=== PATIENT | male | born 1935 | race Caucasian/White ===

== ENCOUNTER 2016-11-08 02:21 | Inpatient (IN) | payer MEDICARE, OTHER ==
[~2016-11-08] VITALS: Ht 190.5 cm; Wt 99.3 kg
--- NOTE | 2016-11-08 02:28 | NUR ---
80 YO MALE BB RA FROM HOME. PT IS ALERT X 2, PT IS NOTED TO BE TACHYCARDIC IN THE 110'S, MD GALLARDO NOTIFIED. PT GOWNED, PLACED ON VAN DRIVER. SKIN WARM AND DRY, RR EVEN AND UNLABORED. AWAITING ORDERS FROM PROVIDER. PER EMS, PT CALLED EMS FOR PT BECOMING ALTERED. PT ONLY COMPLAINT IS COUGH, DENIES C/P, SOB/ N/V. NOTED DIMINISHED LUNGS SOUND LEFT LOBES. AWAITING ORDERS FROM PROVIDER, WILL CONTINUE TO MONITOR
--- NOTE | 2016-11-08 02:30 | NUR ---
CATHERINE GALLARDO DO AT BED SIDE FOR EVAL
--- NOTE | 2016-11-08 02:34 | NUR ---
LAB AT BED SIDE FOR BLOOD DRAW
[2016-11-08] MEDS ORDERED: MELO7.5T12 PO (02:41)
[2016-11-08] MEDS ORDERED: TRAM50TA2 PO (02:41)
[2016-11-08] MEDS ORDERED: LOSA25TA13 PO (02:41)
[2016-11-08 02:49] LABS: HEMATOCRIT 46 % (39-51); HEMOGLOBIN 15.7 g/dL (13.5-17.5); LYMPHOCYTES # (AUTO) 0.6 /CMM (0.8-4.8); LYMPHOCYTES % (AUTO) 4.9 % (20.0-44.0); MEAN CORPUSCULAR HEMOGLOBIN 33 PG (26.0-33.0); MEAN CORPUSCULAR HGB CONC 34 g/dl (31.0-36.0); MEAN CORPUSCULAR VOLUME 97 fL (80-96); MONOCYTES # (AUTO) 1.1 /CMM (0.1-1.30); MONOCYTES % (AUTO) 8.4 % (2.0-12.0); NEUTROPHILS # (AUTO) 11.5 /CMM (1.8-8.9); NEUTROPHILS % (AUTO) 86.7 % (43.0-81.0); PLATELET COUNT (AUTO) 160 /CMM (150-450); RED BLOOD CELL COUNT(AUTO) 4.77 MIL/uL (4.5-6.0); WHITE BLOOD COUNT (AUTO) 13.3 K/uL (4.3-11.0)
[2016-11-08] MEDS ORDERED: methylPREDNISolone SOD SUCC 125 MG/2ML VIAL IV ONE (03:00)
[2016-11-08] MEDS ORDERED: methylPREDNISolone SOD SUCC 125 MG/2ML VIAL ONE (03:00)
[2016-11-08] MEDS ORDERED: ALBUTEROL FS 2.5 MG/0.5 ML VIAL.NEB NEB ONE (03:00)
--- NOTE | 2016-11-08 03:01 | NUR ---
MEDICATED PT ORDERED
[2016-11-08] MEDS ORDERED: ALBUTEROL FS 2.5 MG/0.5 ML VIAL.NEB ONE (03:04)
--- NOTE | 2016-11-08 03:04 | NUR ---
RADIOLOGY TRANSPORTED PT TO CT VIA [facility]
[2016-11-08 03:10] LABS: APPEARANCE,URINE SL CLOUDY (CLEAR); BILIRUBIN,URINE NEGATIVE (NEGATIVE); BLOOD, URINE 2+ Ery/uL (NEGATIVE); COLOR,URINE DARK YELLO (YELLOW); KETONES,URINE NEGATIVE (NEGATIVE); LEUKOCYTE ESTERASE ,URINE NEGATIVE (NEGATIVE); NITRITE, URINE NEGATIVE (NEGATIVE); PH,URINE 5.5 (5.0-8.0); PROTEIN,URINE TRACE mg/dl (NEGATIVE); UGLUCOSE NEGATIVE (NEGATIVE); UROBILINOGEN,URINE 0.2 EU/dL (0.2)
[2016-11-08 03:22] LABS: BACTERIA,URINE None seen /HPF (None Seen); MUCUS,URINE Few /LPF (None Seen); SQUAMOUS EPITHELIAL CELL,UR Rare /HPF (None Seen); WBC,URINE NONE SEEN /HPF (0-3)
[2016-11-08 03:39] LABS: TROPONIN I < 0.017 ng/mL (0.00-0.056)
[2016-11-08 03:46] LABS: ALANINE AMINOTRANSFERASE 21 U/L (12-78); ALBUMIN 3.5 g/dL (3.4-5.0); ALKALINE PHOSPHATASE 62 U/L (46-116); ASPARTATE AMINOTRANSFERASE 16 U/L (15-37); B-TYPE NATRIURETIC PEPTIDE 1521 PG/ML (0-125); BILIRUBIN,DIRECT 0.2 mg/dL (0.0-0.2); BILIRUBIN,TOTAL 1.1 mg/dL (0.2-1.0); CALCIUM, SERUM 8.9 mg/dL (8.5-10.1); CARBON DIOXIDE 20 mmol/L (21-32); CHLORIDE 105 mmol/L (98-107); CREATININE 1.6 mg/dL (0.6-1.3); GLUCOSE 129 mg/dL (74-106); POTASSIUM 4.1 mmol/L (3.5-5.1); SODIUM SERUM 138 mmol/L (136-145); UREA NITROGEN, BLOOD 29 mg/dL (7-18)
[2016-11-08 03:54] LABS: ABG BASE EXCESS -2.7 mmol/L; ABG OXYGEN SATURATION 90.4 % (92.0-98.5); ABG PCO2 27.8 mmHg (35.0-45.0); ABG PH 7.462 (7.350-7.450); ABG PO2 57.2 mmHg (75.0-100.0); MetHb 0.4 % (0.0-1.5); O2Hb 89.1 % (94.0-97.0); SITE, ABG Right Radial; VENT MODE, BG SM
[2016-11-08] MEDS ORDERED: AMLO5TAB2 PO (03:54)
[2016-11-08] MEDS ORDERED: ALLO100T PO (03:54)
[2016-11-08] MEDS ORDERED: SIMV20TA6 PO (03:54)
--- NOTE | 2016-11-08 03:57 | NUR ---
ASSIGNED BED 108
[2016-11-08] MEDS ORDERED: PIPERACILLIN /TAZOBACTAM 3.375 G in IV D5W 50 ML IV ONE (04:00)
[2016-11-08] MEDS ORDERED: LEVOFLOXACIN 750 MG /D5W 150ML PIGGYBACK IV ONE (04:00)
--- NOTE | 2016-11-08 04:03 | NUR ---
CALLED TO GIVE REPORT. WAS INFORMED MEREDITH SANCHEZ WILL CALL BACK.
[2016-11-08] MEDS ORDERED: PIPERACILLIN /TAZOBACTAM 3.375 G VIAL IV ONE (04:11)
[2016-11-08] MEDS ORDERED: LEVOFLOXACIN 750 MG /D5W 150ML 150 ML IV ONE (04:11)
--- NOTE | 2016-11-08 04:28 | NUR ---
RECEIVED 80 YO MALE BB RA FROM ER ENDORSED BY EMILIO. PT IS ALERT X 2, PT IS NOTED TO BE SR TACHY 99, 132/74, T 99.9, RR 24. PT GOWNED, PLACED ON TELE MONITOR. SKIN WARM AND DRY, RR EVEN AND LABORED. CALLED IVANNA LCAY, AWAITING ORDERS FROM CORE FEEDER. PER , PT CALLED EMS FOR PT BECOMING ALTERED. PT ONLY COMPLAINT IS COUGH, DENIES C/P, SOB/ N/V. NOTED DIMINISHED LUNGS SOUND LEFT LOBES. AWAITING ORDERS FROM CORE FEEDER, WILL CONTINUE TO MONITOR.
--- NOTE | 2016-11-08 04:36 | NUR ---
TRANSPORTED PT TO TELE BED WITHOUT INCIDENT
[2016-11-08 05:00] VITALS: BP_SYST 121; BP_SYST 132; BP_DIAS 67; BP_DIAS 74
[2016-11-08] MEDS ORDERED: HYDROCODONE/APAP 5/325MG 1 EACH TABLET PO PRN (06:30)
[2016-11-08] MEDS ORDERED: ACETAMINOPHEN 325 MG TABLET PO PRN (06:30)
[2016-11-08] MEDS ORDERED: ALBUTEROL FS 2.5 MG/0.5 ML VIAL.NEB NEB PRN (06:30)
[2016-11-08] MEDS ORDERED: MAGNESIUM HYDROXIDE 30 ML UDC PO PRN (06:30)
[2016-11-08] MEDS ORDERED: ONDANSETRON HCL/PF 4 MG/2 ML VIAL IVP PRN (06:30)
[2016-11-08] MEDS ORDERED: IPRATROPIUM NEB FS 0.5 MG/2.5 ML AMPUL.NEB NEB PRN (06:30)
[2016-11-08] MEDS ORDERED: ZOLPIDEM TARTRATE 5 MG TABLET PO PRN (06:30)
[2016-11-08] MEDS ORDERED: IV NS 0.9% 1,000 ML BAG IV PRN (06:30)
--- NOTE | 2016-11-08 07:10 | NUR ---
KEIRA RN INITIAL NOTES: REC'D PT AWAKE ON BED, NOT IN ANY FORM OF DISTRESS, A/O X3-4, DENIES ANY PAIN/ DISCOMFORT. PT ON O2 AT 10LPM/ MASK, SATURATING AT 94%. ON TELEMONITOR, SR W/ PAC & PVC, HR 95. HAS L WRIST G18, SL, FLUSHED, PATENT & INTACT W/ NO S/SX OF INFECTION/ INFILTRATION NOTED. PROVIDED COMFORT & SAFETY MEASURES. BED KEPT LOW & IN LOCKED POS. CALL LIGHT PLACED W/IN REACH. WILL CONTINUE TO MONITOR.
[2016-11-08] MEDS: AMLODIPINE BESYLATE 5 MG TABLET PO SCH (08:47)
[2016-11-08] MEDS: PANTOPRAZOLE 40 MG TABLET.DR PO SCH (08:47)
[2016-11-08] MEDS: Z GUARD REMEDY 2 OZ OINT TP PRN (08:48)
[2016-11-08] MEDS: IV NS 0.9% 1,000 ML IV PRN (08:48)
[2016-11-08] MEDS ORDERED: ALLOPURINOL 100 MG TABLET PO SCH (09:00)
[2016-11-08] MEDS ORDERED: MELOXICAM 7.5 MG TABLET PO SCH (09:00)
[2016-11-08 10:08] VITALS: BP 121/65
[2016-11-08] MEDS: LOSARTAN POTASSIUM 25 MG TABLET PO SCH (10:54)
--- NOTE | 2016-11-08 11:00 | NUR ---
RN NOTES: PT SEEN & EXAMINED BY DR. LIN W/ NEW ORDERS & CARRIED OUT. PT PUT ON O2 AT 2LPM/NC W/ HUMIDIFIER, SATURATING AT 88%. MD IS AWARE. ENCOURAGED PT TO DO DEEP BREATHING WELL TO USE INCENTIVE SPIROMETER. PT VERBALIZED UNDERSTANDING. CURRENT MEDICATIONS ADJUSTED W/ CONSENT OF MD.
[2016-11-08] MEDS ORDERED: TRAMADOL HCL 50 MG TABLET PO PRN (11:30)
[2016-11-08 12:00] VITALS: BP 108/62
[2016-11-08] MEDS: PIPERACILLIN /TAZOBACTAM 3.375 G in IV D5W 50 ML IV SCH ×2 (12:39→17:14)
[2016-11-08] MEDS ORDERED: FUROSEMIDE 20 MG/2 ML VIAL IV ONE (13:30)
[2016-11-08 16:00] VITALS: BP 116/67
--- NOTE | 2016-11-08 16:21 | NUR ---
RN NOTES: PT SEEN & EXAMINED BY DR. CRISOSTOMO W/ NEW ORDERS - TO START GUAFENESSIN 300 MG/15ML PO EVERY 6 HRS FOR 3 DAYS & PREDNISONE 40 MG PO OD X 3 DAYS. MD AWARE OF PT'S SATURATION AT 88% WHILE ON O2 AT 2LPM/NC. O2 SUPPORT INCREASED AT 3LPM/NC PER MD. PT INFORMED.
[2016-11-08] MEDS: predniSONE 20 MG TABLET PO SCH (17:14)
[2016-11-08] MEDS: GUAIFENESIN 300 MG/15 ML UDC PO SCH (18:21)
--- NOTE | 2016-11-08 18:50 | NUR ---
KEIRA RN CLOSING NOTES: NO ACUTE CHANGES NOTED W/IN SHIFT. PT ON O2 AT 3LPM/ NC, SATURATING AT 86%, MD IS AWARE. ENCOURAGED TO USE I.S AND DEEP BREATHING/ COUGHING EXERCISES. L WRIST G18, KEPT PATENT & INTACT W/ NO S/SX OF INFECTION/ INFILTRATION NOTED. KEPT WELL RESTED. BED KEPT LOW & IN LOCKED POS. CALL LIGHT PLACED W/IN REACH. NEEDS ATTENDED. PT ABLE TO AMBULATE W/ STEADY GAIT. FOR SPUTUM COLLECTION, PT IS AWARE. WILL ENDORSE TO PM RN FOR MIGUELANGEL.
[2016-11-08 20:00] VITALS: BP 115/66
[2016-11-08] MEDS: SIMVASTATIN 20 MG TABLET PO SCH (21:37)
[2016-11-08] MEDS: ENOXAPARIN SODIUM 40 MG/0.4 ML DISP.SYRIN SQ SCH (21:39)
[2016-11-09] VITALS: BP 109/66
[2016-11-09] MEDS: GUAIFENESIN 300 MG/15 ML UDC PO SCH ×4 (00:01→17:38)
[2016-11-09] MEDS: PIPERACILLIN /TAZOBACTAM 3.375 G in IV D5W 50 ML IV SCH ×4 (00:01→17:39)
[2016-11-09 04:00] VITALS: BP 116/67
[2016-11-09] MEDS: IV NS 0.9% 1,000 ML IV PRN (06:01)
[2016-11-09] MEDS: LEVOFLOXACIN 750 MG /D5W 150ML 750 MG in PREMIX 1 EA IV SCH (06:01)
[2016-11-09 06:35] LABS: HEMATOCRIT 47 % (39-51); HEMOGLOBIN 15.9 g/dL (13.5-17.5); LYMPHOCYTES # (AUTO) 0.7 /CMM (0.8-4.8); LYMPHOCYTES % (AUTO) 3.9 % (20.0-44.0); MEAN CORPUSCULAR HEMOGLOBIN 33 PG (26.0-33.0); MEAN CORPUSCULAR HGB CONC 34 g/dl (31.0-36.0); MEAN CORPUSCULAR VOLUME 98 fL (80-96); MONOCYTES # (AUTO) 0.9 /CMM (0.1-1.30); MONOCYTES % (AUTO) 4.8 % (2.0-12.0); NEUTROPHILS # (AUTO) 16.6 /CMM (1.8-8.9); NEUTROPHILS % (AUTO) 91.3 % (43.0-81.0); PLATELET COUNT (AUTO) 172 /CMM (150-450); RDW COEFFICIENT OF VARIATION 14.8 (11.5-15.0); RED BLOOD CELL COUNT(AUTO) 4.78 MIL/uL (4.5-6.0); WHITE BLOOD COUNT (AUTO) 18.2 K/uL (4.3-11.0)
--- NOTE | 2016-11-09 06:38 | NUR ---
MEREDITH NOTES No change in condition during the night. Alert and oriented. Educated on lovenox. Ambulates ad preston. Continue on IVF and antibiotics. IV site LW patent. Continue to require use of oxygen. Call light within reach Addendum: 11/09/16 at 714 by CHRISTOPHER CHOI RN [phone] report given to Nydia Mcclellan RN Addendum: 11/09/16 at 716 by CHRISTOPHER CHOI RN 699 Report given to Nydia Mcclellan
[2016-11-09 06:54] LABS: CALCIUM, SERUM 8.6 mg/dL (8.5-10.1); CARBON DIOXIDE 24 mmol/L (21-32); CHLORIDE 105 mmol/L (98-107); CREATININE 1.8 mg/dL (0.6-1.3); GLUCOSE 134 mg/dL (74-106); MAGNESIUM 1.9 mg/dL (1.8-2.4); PHOSPHORUS 3.4 mg/dL (2.5-4.9); POTASSIUM 4.1 mmol/L (3.5-5.1); SODIUM SERUM 140 mmol/L (136-145); UREA NITROGEN, BLOOD 41 mg/dL (7-18)
[2016-11-09 07:00] LABS: CHOLESTEROL 123 mg/dL (<200); HDL CHOLESTEROL 32 mg/dL (40-60); LDL 72 mg/dL (0-99); TRIGLYCERIDES 69 mg/dL (30-150)
--- NOTE | 2016-11-09 07:00 | NUR ---
KEIRA RN INITIAL NOTES: REC'D PT AWAKE ON BED, NOT IN ANY FORM OF DISTRESS, A/O X3-4, DENIES ANY PAIN/ DISCOMFORT. PT ON O2 AT 5LPM/ MASK, VERBALIZED NO SOB. ON TELEMONITOR, SR W/ PVCS, HR 74. HAS L WRIST G18, PL, PATENT & INTACT W/ NO S/SX OF INFECTION/ INFILTRATION NOTED WITH NS X 60 CC/HR INFUSING WELL. ENCOURAGED TO USE I.S AND TO DO DEEP BREATHING EXERCISES W/ VERBALIZATION OF UNDERSTANDING. PROVIDED COMFORT & SAFETY MEASURES. BED KEPT LOW & IN LOCKED POS. CALL LIGHT PLACED W/IN REACH. WILL CONTINUE TO MONITOR.
[2016-11-09 08:00] VITALS: BP 126/73
--- NOTE | 2016-11-09 08:30 | NUR ---
RN NOTES: PT NOTED EPISODE OF VTACH 7 BEATS, PT IS A/OX3, VS STABLE, DENIES ANY DISCOMFORT. CALLED DR. LIN, AWAITING FOR CALL BACK. Addendum: 11/09/16 at 0939 by HELENA RASHID RN 0900H REC'D CALL BACK FROM DR. LIN W/ ORDERS FOR CARDIO CONSULT W/ DR. ALEGRE.
[2016-11-09] MEDS: ALLOPURINOL 100 MG TABLET PO SCH ×2 (08:36→17:38)
[2016-11-09] MEDS: predniSONE 20 MG TABLET PO SCH (08:36)
[2016-11-09] MEDS: AMLODIPINE BESYLATE 5 MG TABLET PO SCH (08:37)
[2016-11-09] MEDS: PANTOPRAZOLE 40 MG TABLET.DR PO SCH (08:37)
[2016-11-09] MEDS: LOSARTAN POTASSIUM 25 MG TABLET PO SCH (08:37)
[2016-11-09] MEDS: Z GUARD REMEDY 2 OZ OINT TP PRN (08:37)
--- NOTE | 2016-11-09 09:30 | NUR ---
RN NOTES: PT SEEN & EXAMINED BY DR. LIN W/ ORDERS TO DO ECHOCARDIOGRAM.
--- NOTE | 2016-11-09 10:31 | NUR ---
RN NOTES: CALLED DR. ALEGRE OFFICE, SPOKE W/ HANH, TO INFORM MD RE: CARDIO CONSULT.
[2016-11-09 12:00] VITALS: BP 122/72
[2016-11-09] MEDS ORDERED: GABAPENTIN 100 MG CAPSULE PO PRN (13:00)
--- NOTE | 2016-11-09 13:30 | NUR ---
RN NOTES: ECHOCARDIOGRAM DONE.
--- NOTE | 2016-11-09 15:00 | NUR ---
RN NOTES: PT SEEN & EXAMINED BY DR. CRISOSTOMO.
[2016-11-09 16:00] VITALS: BP 128/69
--- NOTE | 2016-11-09 19:14 | NUR ---
KEIRA RN CLOSING NOTES: NO ACUTE CHANGES NOTED W/IN SHIFT. SATURATING AT < 90'S WHILE ON O2 AT 3LPM/ NC, MD IS AWARE. L WRIST G18, KEPT PATENT & INTACT W/ NO S/SX OF INFECTION/ INFILTRATION NOTED W/ NS X 60 CC/HR INFUSING WELL. OFF TELEMONITOR PER MD ORDERS. KEPT WELL RESTED. BED KEPT LOW & IN LOCKED POS. CALL LIGHT PLACED W/IN REACH. NEEDS ATTENDED. WILL ENDORSE TO PM RN FOR MIGUELANGEL.
--- NOTE | 2016-11-09 19:15 | NUR ---
RN NOTES RECEIVED PT AWAKE, HOB ELEVATED , NO SOB, NOT IN DISTRESS WITH O2 INHALATION AT 3LPM VIA NC WITH O2SAT OF 91%. PT ALERT AND ORIENTED X4, DENIES ANY PAIN AND DISCOMFORT. IV ACCESS ON LEFT WRIST PATENT AND INTACT, NO SIGNS OF INFILTRATION NOTED, WITH ONGOING IVF INFUSING WELL. KEPT COMFORTABLE AND ATTENDED. SAFETY MEASURES IN PLACE. KEPT BED IN THE LOWEST POSITION, LOCKED, SIDE RAILS X2 UP, WITH CALL LIGHT WITH IN REACH. WILL CONTINUE TO MONITOR PT.
[2016-11-09 20:00] VITALS: BP 137/71
[2016-11-09] MEDS: ENOXAPARIN SODIUM 40 MG/0.4 ML DISP.SYRIN SQ SCH (21:14)
[2016-11-09] MEDS: SIMVASTATIN 20 MG TABLET PO SCH (21:14)
[2016-11-10] VITALS: BP 137/71
[2016-11-10] MEDS: PIPERACILLIN /TAZOBACTAM 3.375 G in IV D5W 50 ML IV SCH ×5 (00:01→23:31)
[2016-11-10] MEDS: GUAIFENESIN 300 MG/15 ML UDC PO SCH ×5 (00:01→23:31)
[2016-11-10] MEDS: IV NS 0.9% 1,000 ML IV PRN ×2 (00:29→21:41)
[2016-11-10 04:00] VITALS: BP 126/69
[2016-11-10 06:39] LABS: HEMATOCRIT 49 % (39-51); HEMOGLOBIN 16.4 g/dL (13.5-17.5); LYMPHOCYTES # (AUTO) 0.9 /CMM (0.8-4.8); LYMPHOCYTES % (AUTO) 4.9 % (20.0-44.0); MEAN CORPUSCULAR HEMOGLOBIN 34 PG (26.0-33.0); MEAN CORPUSCULAR HGB CONC 34 g/dl (31.0-36.0); MEAN CORPUSCULAR VOLUME 100 fL (80-96); MONOCYTES # (AUTO) 0.8 /CMM (0.1-1.30); MONOCYTES % (AUTO) 4.2 % (2.0-12.0); NEUTROPHILS # (AUTO) 17.4 /CMM (1.8-8.9); NEUTROPHILS % (AUTO) 90.9 % (43.0-81.0); PLATELET COUNT (AUTO) 194 /CMM (150-450); RDW COEFFICIENT OF VARIATION 14.7 (11.5-15.0); WHITE BLOOD COUNT (AUTO) 19.1 K/uL (4.3-11.0)
--- NOTE | 2016-11-10 07:02 | NUR ---
RN NOTES PT AWAKE, HOB ELEVATED, NO SOB, NOT IN DISTRESS ON 3LPM O2 WITH O2 SAT AT 91%. VITAL SIGNS STABLE, AFEBRILE. PT ALERT AND ORIENTED X4, NO COMPLAIN OF PAIN. NO EPISODE OF NAUSEA AND VOMITING. PT COUGH AT TIMES, PRODUCTIVE, ABLE TO SPIT OUT WHITE THICK SECRETIONS. ALL DUE MEDS GIVEN. ASSISTED TO THE BATHROOM, NOTED WITH STEADY GAIT. ALL NEEDS MET. NO SIGNIFICANT CHANGE IN CONDITION NOTED. WILL ENDORSE TO MORNING RN FOR CONTINUITY OF CARE.
[2016-11-10 07:08] LABS: CALCIUM, SERUM 8.7 mg/dL (8.5-10.1); CARBON DIOXIDE 24 mmol/L (21-32); CHLORIDE 106 mmol/L (98-107); CREATININE 1.6 mg/dL (0.6-1.3); GLUCOSE 129 mg/dL (74-106); MAGNESIUM 2.1 mg/dL (1.8-2.4); PHOSPHORUS 2.6 mg/dL (2.5-4.9); POTASSIUM 4.1 mmol/L (3.5-5.1); SODIUM SERUM 142 mmol/L (136-145); UREA NITROGEN, BLOOD 35 mg/dL (7-18)
[2016-11-10 08:00] VITALS: BP 128/74
[2016-11-10] MEDS: PANTOPRAZOLE 40 MG TABLET.DR PO SCH (08:24)
[2016-11-10] MEDS: ALLOPURINOL 100 MG TABLET PO SCH ×2 (08:25→17:53)
[2016-11-10] MEDS: AMLODIPINE BESYLATE 5 MG TABLET PO SCH (08:25)
[2016-11-10] MEDS: predniSONE 20 MG TABLET PO SCH (08:27)
[2016-11-10 16:00] VITALS: BP 131/71
[2016-11-10] MEDS: LACTOBACILLUS RHAMNOSUS GG 1 EACH CAP.SPRINK PO SCH (17:53)
--- NOTE | 2016-11-10 19:39 | NUR ---
MS RN INITIAL NOTE PT WAS RECEIVED IN NO ACUTE DISTRESS. PT IS A/O X3 ABLE TO COMMUNICATE AND LET NEEDS BE KNOWN. AT BED SIDE. PT IS ON NO TELE/VENT. ON 3LPM 02 VIA NC SATURATING AT 97% WITH NO DISTRESS. ON 2 GM NA DIET. HAS A L WRIST 18G RUNNING NS @60ML/HR. COMFORT AND SAFETY MEASURES WILL BE ENSURED DURING THE SHIFT. WILL CONTINUE TO MONITOR FOR ANY CHANGES.
[2016-11-10 20:00] VITALS: BP 128/77
[2016-11-10] MEDS: ENOXAPARIN SODIUM 40 MG/0.4 ML DISP.SYRIN SQ SCH (21:31)
[2016-11-10] MEDS: SIMVASTATIN 20 MG TABLET PO SCH (21:31)
[2016-11-11 04:00] VITALS: BP 143/84
[2016-11-11] MEDS: PIPERACILLIN /TAZOBACTAM 3.375 G in IV D5W 50 ML IV SCH ×2 (05:00→11:36)
[2016-11-11] MEDS: GUAIFENESIN 300 MG/15 ML UDC PO SCH ×2 (05:00→11:36)
[2016-11-11] MEDS: LEVOFLOXACIN 750 MG /D5W 150ML 750 MG in PREMIX 1 EA IV SCH (05:06)
--- NOTE | 2016-11-11 05:44 | NUR ---
RN MS CLOSING NOTE PT REMAINS IN NO ACUTE DISTRESS. PT HAS CLEAN DRY AND INTACT IV LINE. ABLE TO SLEEP WELL LAST NIGHT. 3LPM 02 VIA NC TOLERATED WELL. ALL DUE ORDERS CARRIED OUT. SAFETY AND COMFORT MEASURES ENSURED. WILL ENDORSE CARE TO AM NURSE.
--- NOTE | 2016-11-11 07:27 | NUR ---
MEREDITH INITIAL NOTE REPORT RECEIVED FROM INES HARPER PM SHIFT. PT A/O X 4. PT MS. IV L WRIST 18g NS @ 60ML/HR. WILL CONTINUE TO MONITOR. PAIN 0/10. ALL SAFETY MEASURES IN PLACE.
[2016-11-11 08:00] VITALS: BP 139/77
[2016-11-11 08:05] VITALS: BP 139/77
[2016-11-11] MEDS: AMLODIPINE BESYLATE 5 MG TABLET PO SCH (08:05)
[2016-11-11] MEDS: ALLOPURINOL 100 MG TABLET PO SCH (08:05)
[2016-11-11] MEDS: PANTOPRAZOLE 40 MG TABLET.DR PO SCH (08:05)
[2016-11-11] MEDS: LACTOBACILLUS RHAMNOSUS GG 1 EACH CAP.SPRINK PO SCH (08:05)
[2016-11-11] MEDS: predniSONE 20 MG TABLET PO SCH (08:05)
[2016-11-11 08:15] LABS: BASOPHILS % (AUTO) 0.1 % (0.0-2.0); HEMATOCRIT 47 % (39-51); HEMOGLOBIN 15.9 g/dL (13.5-17.5); LYMPHOCYTES # (AUTO) 0.8 /CMM (0.8-4.8); LYMPHOCYTES % (AUTO) 5.1 % (20.0-44.0); MEAN CORPUSCULAR HEMOGLOBIN 33 PG (26.0-33.0); MEAN CORPUSCULAR HGB CONC 34 g/dl (31.0-36.0); MEAN CORPUSCULAR VOLUME 97 fL (80-96); MONOCYTES # (AUTO) 1.1 /CMM (0.1-1.30); MONOCYTES % (AUTO) 6.6 % (2.0-12.0); NEUTROPHILS # (AUTO) 14.2 /CMM (1.8-8.9); NEUTROPHILS % (AUTO) 88.2 % (43.0-81.0); PLATELET COUNT (AUTO) 205 /CMM (150-450); RDW COEFFICIENT OF VARIATION 14.3 (11.5-15.0); RED BLOOD CELL COUNT(AUTO) 4.81 MIL/uL (4.5-6.0); WHITE BLOOD COUNT (AUTO) 16.1 K/uL (4.3-11.0)
[2016-11-11 08:26] LABS: ALANINE AMINOTRANSFERASE 31 U/L (12-78); ALBUMIN 2.7 g/dL (3.4-5.0); ALKALINE PHOSPHATASE 44 U/L (46-116); BILIRUBIN,TOTAL 0.7 mg/dL (0.2-1.0); CALCIUM, SERUM 8.6 mg/dL (8.5-10.1); CARBON DIOXIDE 25 mmol/L (21-32); CHLORIDE 106 mmol/L (98-107); CREATININE 1.4 mg/dL (0.6-1.3); GLUCOSE 92 mg/dL (74-106); MAGNESIUM 1.9 mg/dL (1.8-2.4); PHOSPHORUS 2.2 mg/dL (2.5-4.9); POTASSIUM 3.9 mmol/L (3.5-5.1); SODIUM SERUM 139 mmol/L (136-145); TOTAL PROTEIN, SERUM 6.6 g/dL (6.4-8.2); UREA NITROGEN, BLOOD 26 mg/dL (7-18)
[2016-11-11 08:35] LABS: ASPARTATE AMINOTRANSFERASE 22 U/L (15-37)
--- NOTE | 2016-11-11 09:01 | NUR ---
RN NOTE DR. LIN MADE ROUND ON PT . BEFORE DC MD ORDERED AMB WITH OUT O2. REMOVED OXYGEN ON PT. CALLED PHYSICAL THERAPY TO AMB WITH PT. WILL CONTINUE TO MONITOR PT OXYGEN LEVEL.
--- NOTE | 2016-11-11 11:11 | NUR ---
RN NOTE PT UNABLE TO AMB WITH OUT O2 @ REST WITH OUT OZ SPO02 86-87%. PT AMB WITH O2 WITH PT 4L NC 88-90%. SPOKE TO DR. OSPINA PT NEEDS TO GO HOME WITH O2.
[2016-11-11] MEDS ORDERED: NEUTRA PHOS 1 POWD.PACKET PO ONE (13:00)
--- NOTE | 2016-11-11 14:20 | NUR ---
MARKETING TEACHER NOTE PT DC HOME. PT STABLE WELL V/S. PT DC VIA PRIVATE CAR. IV AND ID BAND REMOVED. ALL DC INSTRUCTIONS GIVEN TO PT AND JOLLY. BELONGING LIST SIGNED. INFORMED PT AND EDUCATED PT ON IMPORTANCE OF OXYGEN AT HOME VIA NC. WENT HOME WITH OXYGEN. DECLINED WEARING O2 HOME PT STATED HE FELT FINE. I REEDUCATED PT ON IMPORTANCE AND WELL. STED HE LIVED 2 MINUTES AWAY AND WOULD PUT IT ON @ HOME. I TOLD PT I CAN NOT FORCE HIM ONLY EDUCATE HIM. ASK IF SHE COULD MAKE SHE PT USES O2. DR. OSPINA INFORMATION GIVEN ASK TO CALL FOR APPT IN 1-2 WKS. MAKE F/U APPT WITH PRIMARY IN 1-2 WKS. ALL ORDERS CARRIED OUT AND RX GIVEN TO PT. ALL QUESTIONS AND CONCERN ANSWERED. UNABLE TO PROVIDE DATE OF PNEUMONIA VACCINE EXIT CARE AND CORE MEASURES DONE.
== END 2016-11-11 14:17 | disposition home or self-care (01) | DRG 999 ==
LOC: ER 02:22 → TELE-TD 04:02 → MEDSG1 11-09 16:55
PROVIDERS: ADMIT Internal Medicine; ATTEND Internal Medicine
DX: Y92.009 Unspecified place in unspecified non-institutional (private) residence as the place of occurrence of the external cause (principal); J15.9 Unspecified bacterial pneumonia; J96.01 Acute respiratory failure with hypoxia; N17.0 Acute kidney failure with tubular necrosis; I50.33 Acute on chronic diastolic (congestive) heart failure; G92 Toxic encephalopathy; I47.2 Ventricular tachycardia; E78.5 Hyperlipidemia, unspecified; G47.00 Insomnia, unspecified; Z86.73 Personal history of transient ischemic attack (TIA), and cerebral infarction without residual deficits; Z96.659 Presence of unspecified artificial knee joint; M10.9 Gout, unspecified; I49.9 Cardiac arrhythmia, unspecified; D72.829 Elevated white blood cell count, unspecified; T38.0X5A Adverse effect of glucocorticoids and synthetic analogues, initial encounter
CPT/HCPCS: 36415; 36600; 70450-TC; 71010-TC; 80048-TC; 80053-TC; 80061-TC; 80076-TC; 81000-TC; 82803-TC; 83605-TC; 83735-TC; 83880; 84100-TC; 84484-TC; 85025-TC; 87040-TC; 87070-TC; 87081-TC; 93307-TC; 94799-TC; 97001-TC; A4216; A4606; J1650; J1940; J1956; J2543; J2930; J7030; J7060; Z7610

== ENCOUNTER 2018-09-29 16:32 | Inpatient (IN) | payer MEDICARE, OTHER ==
[~2018-09-29] VITALS: Ht 190.5 cm; Wt 98.9 kg
[2018-09-29 09:00] VITALS: BP 140/69
[~2018-09-29 16:32] MED LIST: ALLO100T PO; AMLO5TAB9 PO; LOSA25TA27 PO; MELO7.5T12 PO; SIMV20TA6 PO; TRAM50TA2 PO
[2018-09-29] MEDS ORDERED: ONDANSETRON HCL/PF 4 MG/2 ML VIAL ONE (16:58)
[2018-09-29] MEDS ORDERED: ONDANSETRON HCL/PF 4 MG/2 ML VIAL IVP ONE (17:00)
[2018-09-29] MEDS ORDERED: IV NS 0.9% 1,000 ML BAG IV ONE (17:00)
--- NOTE | 2018-09-29 17:00 | NUR ---
BIB RA 878 FROM HOME, DIZZINESS AFTER DOING YOGA AT 11 THIS MORNING WHICH RESOLVED BUT RE-OCCURED WHEN HE WOKE UP THIS AFTERNOON. PT AAOX4, VSS, RR EVEN & UNLABORED. DENIES CP, SOB, N/V, ARM/JAW PAIN, VISUAL CHANGES, NUMBNESS/TINGLING SENSATION AT THIS TIME. PT SEEN & EVAL'D BY DR. DOE. WILL CONT TO MONITOR.
[2018-09-29 17:10] LABS: BASOPHILS # (AUTO) 0.1 /CMM (0.0-0.2); BASOPHILS % (AUTO) 0.8 % (0.0-2.0); EOSINOPHILS % (AUTO) 1.1 % (0.0-6.0); HEMATOCRIT 50 % (39-51); HEMOGLOBIN 16.8 g/dL (13.5-17.5); LYMPHOCYTES % (AUTO) 13.7 % (20.0-44.0); MEAN CORPUSCULAR HGB CONC 34 g/dl (31.0-36.0); MEAN CORPUSCULAR VOLUME 101 fL (80-96); MONOCYTES # (AUTO) 0.4 /CMM (0.1-1.30); MONOCYTES % (AUTO) 5.2 % (2.0-12.0); NEUTROPHILS # (AUTO) 5.9 /CMM (1.8-8.9); NEUTROPHILS % (AUTO) 79.2 % (43.0-81.0); PLATELET COUNT (AUTO) 169 /CMM (150-450); RED BLOOD CELL COUNT(AUTO) 4.98 MIL/uL (4.5-6.0); WHITE BLOOD COUNT (AUTO) 7.4 K/uL (4.3-11.0)
--- NOTE | 2018-09-29 17:12 | NUR ---
PT REFUSED MED, ERMD AWARE.
[2018-09-29 17:19] LABS: CALCIUM, SERUM 9.5 mg/dL (8.5-10.1); CARBON DIOXIDE 20 mmol/L (21-32); CHLORIDE 107 mmol/L (98-107); CREATININE 1.3 mg/dL (0.6-1.3); GLUCOSE 133 mg/dL (74-106); POTASSIUM 4.6 mmol/L (3.5-5.1); SODIUM SERUM 140 mmol/L (136-145); UREA NITROGEN, BLOOD 27 mg/dL (7-18)
--- NOTE | 2018-09-29 17:24 | NUR ---
PT TO CT VIA [facility].
[2018-09-29 17:25] LABS: ALANINE AMINOTRANSFERASE 21 U/L (12-78); ALBUMIN 3.8 g/dL (3.4-5.0); ALKALINE PHOSPHATASE 67 U/L (46-116); ASPARTATE AMINOTRANSFERASE 17 U/L (15-37); BILIRUBIN,DIRECT 0.1 mg/dL (0.0-0.2); BILIRUBIN,TOTAL 0.7 mg/dL (0.2-1.0); LIPASE 358 U/L (73-393)
--- NOTE | 2018-09-29 18:12 | NUR ---
TELE BED 309-2
[2018-09-29] MEDS ORDERED: IV NS 0.9% 1,000 ML IV PRN (18:29)
[2018-09-29] MEDS ORDERED: MAG HYDROX/AL HYDROX/SIMETH 30 ML UDC PO PRN (18:30)
[2018-09-29] MEDS ORDERED: Z GUARD REMEDY 2 OZ OINT TP PRN (18:30)
[2018-09-29] MEDS ORDERED: MAGNESIUM HYDROXIDE 30 ML UDC PO PRN (18:30)
[2018-09-29] MEDS ORDERED: ACETAMINOPHEN 325 MG TABLET PO PRN (18:30)
[2018-09-29] MEDS ORDERED: ONDANSETRON HCL/PF 4 MG/2 ML VIAL IVP PRN (18:30)
[2018-09-29] MEDS ORDERED: ASPI-1169 PO (18:31)
[2018-09-29] MEDS ORDERED: RELIEF FACTOR PO (18:31)
[2018-09-29] MEDS ORDERED: METO-356 PO (18:31)
[2018-09-29] MEDS ORDERED: FOLI-65 PO (18:31)
[2018-09-29] MEDS ORDERED: MELA5TAB PO (18:31)
[2018-09-29] MEDS ORDERED: CRAN300T PO (18:31)
[2018-09-29] MEDS ORDERED: GABA-532 PO (18:31)
[2018-09-29] MEDS ORDERED: LOSA50TA39 PO (18:31)
[2018-09-29] MEDS ORDERED: AMLO2.5T4 PO (18:31)
--- NOTE | 2018-09-29 18:42 | NUR ---
REPORT GIVEN TO MEREDITH MONTILLA FOR MIGUELANGEL.
[2018-09-29 19:00] VITALS: BP 138/75
[2018-09-29] MEDS ORDERED: TRAMADOL HCL 50 MG TABLET PO PRN (19:00)
--- NOTE | 2018-09-29 19:00 | NUR ---
UNDERWATER WELDER NOTES RECEIVED PT FROM E.R. STAFF VIA [place], PT IS AWAKE, ALERT AND ORIENTED, DENIES PAIN, ABLE TO TRANSFER TO BED, FALL PRECAUTIONS OBSERVED, DENIES DIZZINESS AT THIS TIME, RESPIRATIONS NORMAL, ROOM SET UP ORIENTATION PROVIDED, VERBALIZED UNDERSTANDING, VITAL SIGNS TAKEN AND RECORDED, CALL LIGHT PLACED WITHIN REACH, KEPT WARM AND COMFORTABLE, ENDORSED TO INCOMING RN FOR CONTINUITY OF CARE.
--- NOTE | 2018-09-29 19:15 | NUR ---
INSTITUTIONAL RESEARCH DIRECTOR NOTES Received patient A/O X4, awake, on semi-Lou's position on bed. With patent peripheral IV line LAC G#20 SL. On RA, no SOB/respiratory distress noted. On tele monitor with SR with PVC noted. Patient denies any discomfort at this time. Initiated IVF NS @ 75ml/hr as ordered. Kept bed low and locked. Siderails up. Call light within easy reach. Will continue to monitor accordingly.
[2018-09-29 20:00] VITALS: BP_SYST 125; BP_SYST 138; BP_SYST 140; BP_DIAS 69; BP_DIAS 75; BP_DIAS 83
--- NOTE | 2018-09-29 20:30 | NUR ---
IT PROGRAM AUDITOR NOTES Checked for orthostatic blood pressure. Lying - 140/75mmHg Sitting - 125/83mmHs Standing - 146/85mmHg
[2018-09-29] MEDS ORDERED: SIMVASTATIN 20 MG TABLET PO SCH (22:00)
--- NOTE | 2018-09-29 23:30 | NUR ---
MS RN NOTES Collected Urine for analysis and culture. Called labs, spoke with Bari. Specimen ready for machine operator hop picker.
[2018-09-30] VITALS (7 sets, daily range): BP systolic 119–141; BP diastolic 64–80
[2018-09-30 00:58] LABS: APPEARANCE,URINE CLEAR (CLEAR); BILIRUBIN,URINE NEGATIVE (NEGATIVE); BLOOD, URINE TRACE-INTA Ery/uL (NEGATIVE); COLOR,URINE YELLOW (YELLOW); KETONES,URINE NEGATIVE (NEGATIVE); LEUKOCYTE ESTERASE ,URINE NEGATIVE (NEGATIVE); NITRITE, URINE POSITIVE (NEGATIVE); PROTEIN,URINE NEGATIVE (NEGATIVE); UGLUCOSE NEGATIVE (NEGATIVE); UROBILINOGEN,URINE 0.2 EU/dL (0.2)
[2018-09-30 01:02] LABS: BACTERIA,URINE Many /HPF (None Seen); SQUAMOUS EPITHELIAL CELL,UR Rare /HPF (None Seen)
--- NOTE | 2018-09-30 06:40 | NUR ---
EDGER MACHINE OPERATOR CLOSING NOTES Patient asleep, easily awaken. On RA, no SOB/respiratory distress noted. All due meds given as ordered. All nursing needs attended, kept clean, dry and comfortable. No new complaints made, patient denies any discomfort at this time. Kept bed low and locked, call light within easy reach. Endorsed to the next shift. Addendum: 09/30/18 at 0642 by ELIZABETH MILES RN On tele monitor with SR with PVCs.
[2018-09-30 07:01] LABS: BASOPHILS % (AUTO) 0.5 % (0.0-2.0); EOSINOPHILS % (AUTO) 1.4 % (0.0-6.0); HEMATOCRIT 47 % (39-51); HEMOGLOBIN 15.7 g/dL (13.5-17.5); LYMPHOCYTES # (AUTO) 1.7 /CMM (0.8-4.8); LYMPHOCYTES % (AUTO) 22.2 % (20.0-44.0); MEAN CORPUSCULAR HGB CONC 34 g/dl (31.0-36.0); MEAN CORPUSCULAR VOLUME 100 fL (80-96); MONOCYTES # (AUTO) 0.7 /CMM (0.1-1.30); MONOCYTES % (AUTO) 9.5 % (2.0-12.0); NEUTROPHILS # (AUTO) 5.2 /CMM (1.8-8.9); NEUTROPHILS % (AUTO) 66.4 % (43.0-81.0); PLATELET COUNT (AUTO) 167 /CMM (150-450); RED BLOOD CELL COUNT(AUTO) 4.68 MIL/uL (4.5-6.0); WHITE BLOOD COUNT (AUTO) 7.8 K/uL (4.3-11.0)
[2018-09-30 07:25] LABS: CALCIUM, SERUM 8.9 mg/dL (8.5-10.1); CARBON DIOXIDE 21 mmol/L (21-32); CHLORIDE 108 mmol/L (98-107); CREATININE 1.3 mg/dL (0.6-1.3); GLUCOSE 91 mg/dL (74-106); MAGNESIUM 1.8 mg/dL (1.8-2.4); PHOSPHORUS 2.9 mg/dL (2.5-4.9); POTASSIUM 4.4 mmol/L (3.5-5.1); SODIUM SERUM 140 mmol/L (136-145); UREA NITROGEN, BLOOD 24 mg/dL (7-18)
[2018-09-30 07:26] LABS: CHOLESTEROL 137 mg/dL (<200); HDL CHOLESTEROL 39 mg/dL (40-60); LDL 90 mg/dL (0-99); TRIGLYCERIDES 67 mg/dL (30-150)
[2018-09-30] MEDS ORDERED: PANTOPRAZOLE 40 MG TABLET.DR PO SCH (07:30)
--- NOTE | 2018-09-30 07:36 | NUR ---
PRODUCE CLERK OPENING NOTES RECEIVED PT AWAKE IN BED, A/O X4. TOLERATING RA, WITH NO ACUTE RESPIRATORY DISTRESS NOTED. PT DENIES ANY PAIN OR DISCOMFORT. PT STATED HIS GOAL IS TO TALK TO RECRUITMENT OFFICER/DR HENDERSON AND BE DISCHARGE TODAY. IVF NS AT 75ML/HR TO LAC 20, INTACT AND FLUID INFUSING WELL. PT KEPT COMFORTABLE. HOB ELEVATED. PT'S BED KEPT IN LOWEST, LOCKED POSITION WITH SR X2. CALL LIGHT AND FLUID WITHIN REACH. WILL CONTINUE PLAN OF CARE.
--- NOTE | 2018-09-30 07:40 | NUR ---
ELECTRIC MULE DRIVER NOTES RECEIVED PT ON TELEMONITORING, SR WITH OCCASIONAL PVCS , HR OF 83.
[2018-09-30] MEDS: IV NS 0.9% 1,000 ML IV PRN ×2 (08:25→12:50)
[2018-09-30] MEDS: ALLOPURINOL 100 MG TABLET PO SCH ×2 (08:36→16:10)
[2018-09-30] MEDS: DOCUSATE SODIUM 100 MG CAPSULE PO SCH ×2 (08:39→16:11)
[2018-09-30] MEDS ORDERED: Medication Not On Formulary EA (Melatonin 5 MG) PO SCH (09:00)
[2018-09-30] MEDS ORDERED: MULTIPLE VIT (LYCOPENE/FA/MV,CA,IRON,MIN/LUT)1 TAB PO SCH (09:00)
[2018-09-30] MEDS ORDERED: METOPROLOL SUCCINATE 25 MG TAB.SR.24H PO SCH (09:00)
[2018-09-30] MEDS ORDERED: GABAPENTIN 100 MG CAPSULE PO SCH (09:00)
[2018-09-30] MEDS ORDERED: AMLODIPINE BESYLATE 2.5 MG TABLET PO SCH (09:00)
[2018-09-30] MEDS ORDERED: LOSARTAN POTASSIUM 50 MG TABLET PO SCH (09:00)
[2018-09-30] MEDS ORDERED: ASPIRIN 81 MG TAB.CHEW PO SCH (09:00)
[2018-09-30] MEDS ORDERED: IV NS 0.9% 500 ML IV ONE (15:30)
--- NOTE | 2018-09-30 17:45 | NUR ---
CULTURAL CENTRE MANAGER NOTES PT DISCHARGED TO HOME ACCOMPANIED BY SPOUSE. PT TOLERATING RA, WITH NO ACUTE RESPIRATORY DISTRESS. PT DENIES PAIN AND DISCOMFORT AT THE TIME OF DISCHARGE. ORTHOSTATIC BP AT 3PM AND 5PM SENT COPY TO HOSPITALIST MILITARY NURSE/LW; AND CLEARED FOR DISCHARGE. ALL NEEDS AND CARE ATTENDED. DISCHARGE INSTRUCTIONS AND INVENTORY LIST SIGNED AND REVIEWED BY PT. ALL BELONGINGS WITH PT, WALLET IS WITH THE . PT CLAIMS WITH INTACT SKIN. NO PICTURES TAKEN AND FILED IN THE CHART. PT ESCORTED BY CLEMENTINA TO THE LOBBY VIA WHEELCHAIR ACCOMPANIED BY . PT LEFT THE UNIT AT 1730. CN/TRISTON AND MILITARY NURSE/LW AWARE OF DISCHARGE.
--- NOTE | 2018-09-30 17:50 | NUR ---
RN NOTES PIV TO LAC, REMOVED AND APPLIED PRESSURE DRESSING. EXTERNAL MASTER WELDER REMOVED WELL AND BROUGHT BACK TO GEEK SQUAD AGENT AT THE TIME OF DISCHARGE.
== END 2018-09-30 17:30 | disposition home or self-care (01) | DRG 641 ==
LOC: ER 16:43 → TELE 18:24
PROVIDERS: ADMIT Registered Nurse; ATTEND Registered Nurse
DX: E86.0 Dehydration (principal); R55 Syncope and collapse; I12.9 Hypertensive chronic kidney disease with stage 1 through stage 4 chronic kidney disease, or unspecified chronic kidney disease; N18.9 Chronic kidney disease, unspecified; E78.5 Hyperlipidemia, unspecified; Z87.01 Personal history of pneumonia (recurrent); Z86.73 Personal history of transient ischemic attack (TIA), and cerebral infarction without residual deficits; R93.1 Abnormal findings on diagnostic imaging of heart and coronary circulation
CPT/HCPCS: 36415; 70450-TC; 71045-TC; 80048-TC; 80061-TC; 80076-TC; 81000-TC; 83690-TC; 83735-TC; 84100-TC; 84443-TC; 84484-TC; 85025-TC; 87081-TC; 87086-TC; 87186-TC; 93307-TC; 93880-TC; 97116-TC; 97530-TC; G0378; J2405; J7030; J7040

== ENCOUNTER 2020-01-27 10:35 | Inpatient (IN) | payer MEDICARE, OTHER ==
--- NOTE | 2020-01-26 22:30 | NUR ---
RN NOTES NO CHANGE IN PATIENT CONDITION AT THIS TIME PATIENT VITALS STABLE, NO SIGNS OF ACUTE RESPIRATORY DISTRESS. BOTTOM LOADER MADE AWARE. WILL CONTINUE TO MONITOR AND REASSESS FOR ANY CHANGES THROUGHOUT THE SHIFT. Addendum: 01/28/20 at 0326 by DAMIAN DE LA CRUZ RN WRONG DATE OF ENTRY: SHOULD BE 01/27/2020
[~2020-01-27] VITALS: Ht 188 cm; Wt 93.4 kg
[~2020-01-27 10:35] MED LIST changes: +AMLO2.5T4 PO; -AMLO5TAB9 PO; +ASPI-1169 PO; +CRAN300T PO; +FOLI-65 PO; +GABA-532 PO; -LOSA25TA27 PO; +LOSA50TA39 PO; +MELA5TAB PO; -MELO7.5T12 PO; +METO25TA4 PO; +RELIEF FACTOR PO; +SIMV-46 PO; -SIMV20TA6 PO
--- NOTE | 2020-01-27 11:03 | NUR ---
BED 9 PT BIBRA C/O GLF AT HOME. PER REPORT PT HAS BEEN FALLING AT HOME. NO C/O PAIN OR DISCOMFORT. DENIED LOOSING CONSCIOUNESS. DENIES CHEST PAIN. VS CHECKED. AWAITING MD ANGELES.
[2020-01-27] MEDS ORDERED: FESO8TAB PO (11:56)
[2020-01-27 12:05] LABS: BASOPHILS # (AUTO) 0.1 /CMM (0.0-0.2); BASOPHILS % (AUTO) 0.9 % (0.0-2.0); EOSINOPHILS % (AUTO) 6.1 % (0.0-6.0); HEMATOCRIT 42 % (39-51); HEMOGLOBIN 13.9 g/dL (13.5-17.5); LYMPHOCYTES # (AUTO) 0.7 /CMM (0.8-4.8); LYMPHOCYTES % (AUTO) 6.8 % (20.0-44.0); MEAN CORPUSCULAR HGB CONC 33 g/dl (31.0-36.0); MEAN CORPUSCULAR VOLUME 101 fL (80-96); MONOCYTES # (AUTO) 0.8 /CMM (0.1-1.30); MONOCYTES % (AUTO) 7.3 % (2.0-12.0); NEUTROPHILS # (AUTO) 8.6 /CMM (1.8-8.9); NEUTROPHILS % (AUTO) 78.9 % (43.0-81.0); PLATELET COUNT (AUTO) 170 /CMM (150-450); RED BLOOD CELL COUNT(AUTO) 4.18 MIL/uL (4.5-6.0); WHITE BLOOD COUNT (AUTO) 10.9 K/uL (4.3-11.0)
--- NOTE | 2020-01-27 12:09 | NUR ---
JAMISON IS DAUGHTER [phone]
--- NOTE | 2020-01-27 12:18 | NUR ---
MOVE SHEET SUBMITTED.
[2020-01-27 12:20] LABS: ALANINE AMINOTRANSFERASE 58 U/L (12-78); ALBUMIN 2.8 g/dL (3.4-5.0); ALKALINE PHOSPHATASE 57 U/L (46-116); ASPARTATE AMINOTRANSFERASE 32 U/L (15-37); BILIRUBIN,DIRECT 0.2 mg/dL (0.0-0.2); BILIRUBIN,TOTAL 0.6 mg/dL (0.2-1.0); CALCIUM, SERUM 9.2 mg/dL (8.5-10.1); CARBON DIOXIDE 21 mmol/L (21-32); CHLORIDE 100 mmol/L (98-107); CREATININE 2.9 mg/dL (0.6-1.3); GLUCOSE 73 mg/dL (74-106); POTASSIUM 3.6 mmol/L (3.5-5.1); SODIUM SERUM 133 mmol/L (136-145); TOTAL PROTEIN, SERUM 5.8 g/dL (6.4-8.2); UREA NITROGEN, BLOOD 51 mg/dL (7-18)
--- NOTE | 2020-01-27 12:37 | NUR ---
PT HAS AN ABRASION ON THE BACK OF HIS HEAD, NO BLEEDING NOTED, BUT DRIED UP BLOOD NOTED. CLEASED WITH NS PAT DRIED THEN COVERED WITH DRY DRESSING.
--- NOTE | 2020-01-27 12:38 | NUR ---
STILL UNABLE TO COLLECT URINE SPECIMEN, PT STATES HE DOES NOT FEEL LIKE PEEING AT THE MOMENT. OFFERED FLUIDS Addendum: 01/27/20 at 1305 by DCABANOS MADE AWARE.
--- NOTE | 2020-01-27 12:40 | NUR ---
PTS DAUGHTER JAMISON FERNANDEZ UPDATED REGARDING FATHER. [phone]
--- NOTE | 2020-01-27 13:10 | NUR ---
RAPID COVID=NEGATIVE
--- NOTE | 2020-01-27 13:19 | NUR ---
Sam jerome in [facility] - 01/27/20 at 1321 by JOSHUA ROOM ASSIGNMENT: 215-1 T
--- NOTE | 2020-01-27 13:21 | NUR ---
ROOM ASSIGNMENT: 115-1 T
--- NOTE | 2020-01-27 13:27 | NUR ---
CALLED KEIRA FOR REPORT, SAID TO CALL BACK IN 10 MINUTES.
[2020-01-27] MEDS ORDERED: MAGNESIUM HYDROXIDE 30 ML UDC PO PRN (13:30)
[2020-01-27] MEDS ORDERED: ONDANSETRON HCL/PF 4 MG/2 ML VIAL IVP PRN (13:30)
[2020-01-27] MEDS ORDERED: ACETAMINOPHEN 325 MG TABLET PO PRN (13:30)
[2020-01-27] MEDS ORDERED: FESOTERODINE 8 MG XX SCH ×2 (13:30→14:00)
[2020-01-27] MEDS ORDERED: MAG HYDROX/AL HYDROX/SIMETH 30 ML UDC PO PRN (13:30)
[2020-01-27] MEDS ORDERED: HYDROCODONE/APAP 5/325MG TABLET PO PRN (13:30)
[2020-01-27] MEDS ORDERED: HOME MED MISCELLANEOUS XX SCH (13:30)
[2020-01-27] MEDS ORDERED: TEMAZEPAM 15 MG CAPSULE PO PRN (13:30)
[2020-01-27] MEDS ORDERED: Z GUARD REMEDY 2 OZ OINT TP PRN (13:30)
[2020-01-27 13:55] LABS: APPEARANCE,URINE SL CLOUDY (CLEAR); BILIRUBIN,URINE NEGATIVE (NEGATIVE); BLOOD, URINE TRACE-INTA Ery/uL (NEGATIVE); COLOR,URINE YELLOW (YELLOW); KETONES,URINE NEGATIVE (NEGATIVE); LEUKOCYTE ESTERASE ,URINE NEGATIVE (NEGATIVE); NITRITE, URINE NEGATIVE (NEGATIVE); PROTEIN,URINE NEGATIVE (NEGATIVE); UGLUCOSE NEGATIVE (NEGATIVE); UROBILINOGEN,URINE 0.2 EU/dL (0.2)
--- NOTE | 2020-01-27 13:58 | NUR ---
REPORT GIVEN TO ERAN HARPER AT [facility] FOR MIGUELANGEL. PT WILL BE GOING TO RM 115 FOR TELE.
[2020-01-27] MEDS ORDERED: SULF1TAB48 PO (14:12)
--- NOTE | 2020-01-27 14:20 | NUR ---
RN ADMITTING NOTES RECEIVED PT ALERT AND AWAKE X4. NOT IN ANY ACUTE DISTRESS. PERRLA CHECK DONE, REACTIVE TO LIGHT. ON ROOM AIR WITH O2 SAT AT 100%. CARDIAC TELE READS NSR WITH HR IN THE 80S. ADMISSION CARE RENDERED. SAFETY PRECAUTION OBSERVED. WILL CONTINUE TO MONITOR.
[2020-01-27 14:29] LABS: BACTERIA,URINE Few /HPF (None Seen); RBC,URINE 0-2 /HPF (0-2); SQUAMOUS EPITHELIAL CELL,UR Few /HPF (None Seen); URIC ACID CRYSTALS,URINE Moderate /HPF (None Seen); WBC,URINE NONE SEEN /HPF (0-3)
--- NOTE | 2020-01-27 14:34 | NUR ---
PT TRANSFERRED TO KEIRA TO ROOM 115
[2020-01-27 16:00] VITALS: BP 115/61
[2020-01-27] MEDS: PANTOPRAZOLE 40 MG TABLET.DR PO SCH (17:24)
[2020-01-27] MEDS: ALLOPURINOL 100 MG TABLET PO SCH (17:24)
--- NOTE | 2020-01-27 19:25 | NUR ---
RN OPENING NOTES: RECEIVED PT A/OX3-4; PT IN BED RESTING COMFORTABLY. PATIENT IN NO S/SX OF ACUTE DISTRESS AT THIS TIME. NO SOB NOTED. PATIENT'S BREATHING IS EVEN AND UNLABORED. PATIENT IS ON ROOM AIR TOLERATING WELL; SATURATING AT 99% AT THE TIME OF RECEIVED. PATIENT ON TELE MONITORING READING SINUS RHYTHM HR IS @60s. NOTED IV SITE ON L AC #20;PATENT, INTACT AND FLUSHING WELL, NO S/S OF INFECTION OR INFILTRATION. PT HAS URINAL AT BEDSIDE. SAFETY MEASURES HAVE BEEN PROVIDED AND IMPLEMENTED. PATIENT BED ALARM IS ON. HEAD OF BED ELEVATED. BED IS LOCKED, IN LOWEST POSITION AND SIDE RAILS UP. CALL LIGHT WITHIN REACH OF THE PATIENT. WILL CONTINUE TO MONITOR AND REASSESS FOR ANY CHANGES AND WILL CARRY OUT ANY ONGOING AND ACTIVE MD ORDER.
--- NOTE | 2020-01-27 19:30 | NUR ---
CUSTOMER CARE AGENT CLOSING NOTES PT REMAINS ALERT AND ORIENTED X4. NOT IN ANY ACUTE DISTRESS. ON ROOM AIR WITH O2 SAT AT 98%. TELE MONITOR READS NSR WITH HR IN THE 80S. LEFT AC IV#20 INTACT AND FLUSHED WELL. URINAL KEPT AT BEDSIDE FOR EASY ACCESS FOR URINATION. SAFETY PRECAUTION OBSERVED AT ALL TIMES. CALL LIGHT LEFT WITHIN REACH FOR EASY ACCESS. WILL ENDORSE TO NEXT SHIFT FOR MIGUELANGEL. Addendum: 01/27/20 at 2015 by BRY PLEITEZ RN PT TRANSFERRED TO ROOM 311 FOR MIGUELANGEL.
[2020-01-27 20:00] VITALS: BP 155/72
--- NOTE | 2020-01-27 20:30 | NUR ---
RN NOTES RECEIVED CALL FROM JAMISON ( DAUGHTER OF PT-[phone]) TRIED TO ASK FOR CURRENT CONDITION OF THE APTIENT, RN JUST PROVIDED GENERAL INFO AND ASKED HER TO CALL IN AM TO GET MORE PERTINENT INFO FROM MD. SHE ACKNOWLEDGED. SHE ALSO SAID TO PROVIDE AN UPDATE IF THERE'S ANY SIGNIFICANT CHANGES TO HIS DAD. RN ACKNOWLEDGED.
--- NOTE | 2020-01-27 22:30 | NUR ---
RN NOTES NO CHANGE IN PATIENT CONDITION AT THIS TIME PATIENT VITALS STABLE, NO SIGNS OF ACUTE RESPIRATORY DISTRESS. PAPER SUPERVISOR MADE AWARE. WILL CONTINUE TO MONITOR AND REASSESS FOR ANY CHANGES THROUGHOUT THE SHIFT.
[2020-01-28] VITALS: BP 134/69
[2020-01-28] MEDS: IV NS 0.9% 1,000 ML IV PRN (00:01)
--- NOTE | 2020-01-28 01:45 | NUR ---
RN NOTES PATIENT NOTED TO BE CONFUSED AND CONSCIOUSNESS SOMEHOW ALTERED. COMMUNICATED TO ONCALL TO ADVISE CHANGE OF CONDITION/STATUS. MD ORDERED STAT CT HEAD WO CONTRAST RESTAURANT SHIFT SUPERVISOR MADE AWARE. WILL CONTINUE TO ASSESS AND MONITOR THROUGHOUT THE SHIFT.
[2020-01-28 04:00] VITALS: BP_SYST 121; BP_SYST 134; BP_DIAS 67; BP_DIAS 69
--- NOTE | 2020-01-28 05:40 | NUR ---
RN NOTES COMMUNICATED WITH CRISTINA MANDUJANO () REGARDING THE RESULT OF THE CT-HEAD OF PT. FINDINGS FOLLOWS: NO SIGNIFICANT INTERIM CHANGE. TRACE RESIDUAL RIGHT SUBARACHNOID AND SUBDURAL HEMORRHAGES WITHOUT SIGNIFICANT MASS EFFECT. GENERALIZED VOLUME LOSS, ATHEROSCLEROSIS, CHRONIC SMALL VESSEL ISCHEMIC CHANGES. 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
--- NOTE | 2020-01-28 06:46 | NUR ---
RN CLOSING NOTES PATIENT REMAINS IN ROOM IN NO SIGNS OF RESPIRATORY DISTRESS. PATIENT SATURATING 96% OF 02. VITAL SIGNS WNL. IV LINE MAINTAINED, INTACT, PATENT AND FLUSHING, NO SITE REDNESS OR INFILTRATION. SAFETY PRECAUTIONS IN PLACE AND COMFORT MEASURES RENDERED. BED IN LOWEST POSITION, CALL LIGHT WITHIN REACH, BREAKS ON, SIDE RAILS UP. ALL NEEDS ATTENDED, MEDICATIONS GIVEN SCHEDULED AND ORDERED ; SHIFT ASSESSMENT/BEDBATH/SKIN CARE DONE. PATIENT KEPT CLEAN AND DRY. WILL ENDORSE TO INCOMING SHIFT FOR MIGUELANGEL WITH ALL PERTINENT INFO REGARDING PATIENT STATUS.
[2020-01-28 06:56] LABS: ALANINE AMINOTRANSFERASE 65 U/L (12-78); ALBUMIN 2.9 g/dL (3.4-5.0); ALKALINE PHOSPHATASE 60 U/L (46-116); ASPARTATE AMINOTRANSFERASE 36 U/L (15-37); BILIRUBIN,TOTAL 0.7 mg/dL (0.2-1.0); CALCIUM, SERUM 9.1 mg/dL (8.5-10.1); CARBON DIOXIDE 19 mmol/L (21-32); CHLORIDE 100 mmol/L (98-107); CREATININE 2.1 mg/dL (0.6-1.3); GLUCOSE 83 mg/dL (74-106); MAGNESIUM 1.9 mg/dL (1.8-2.4); PHOSPHORUS 3.2 mg/dL (2.5-4.9); SODIUM SERUM 133 mmol/L (136-145); TOTAL PROTEIN, SERUM 6.2 g/dL (6.4-8.2); UREA NITROGEN, BLOOD 49 mg/dL (7-18)
[2020-01-28 07:06] LABS: BASOPHILS # (AUTO) 0.1 /CMM (0.0-0.2); EOSINOPHILS % (AUTO) 3.8 % (0.0-6.0); HEMATOCRIT 44 % (39-51); HEMOGLOBIN 14.9 g/dL (13.5-17.5); LYMPHOCYTES # (AUTO) 1.3 /CMM (0.8-4.8); LYMPHOCYTES % (AUTO) 12.3 % (20.0-44.0); MEAN CORPUSCULAR HGB CONC 34 g/dl (31.0-36.0); MEAN CORPUSCULAR VOLUME 101 fL (80-96); MONOCYTES % (AUTO) 9.3 % (2.0-12.0); NEUTROPHILS # (AUTO) 7.7 /CMM (1.8-8.9); NEUTROPHILS % (AUTO) 73.6 % (43.0-81.0); PLATELET COUNT (AUTO) 205 /CMM (150-450); RED BLOOD CELL COUNT(AUTO) 4.42 MIL/uL (4.5-6.0); WHITE BLOOD COUNT (AUTO) 10.5 K/uL (4.3-11.0)
[2020-01-28 07:10] LABS: CHOLESTEROL 115 mg/dL (<200); CREATINE KINASE, TOTAL 239 U/L (39-308); HDL CHOLESTEROL 24 mg/dL (40-60); LDL 77 mg/dL (0-99); THYROID STIMULATING HORMONE 0.721 uIU/mL (0.358-3.74); TRIGLYCERIDES 92 mg/dL (30-150)
--- NOTE | 2020-01-28 07:55 | NUR ---
RN OPENING NOTES PATIENT IS RESTING IN ROOM IN NO SIGNS OF RESPIRATORY DISTRESS. PATIENT SATURATING 96% OF 02 WITH ROOM AIR. VITAL SIGNS WNL. IV LINE MAINTAINED, INTACT, PATENT AND FLUSHING, NO SITE REDNESS OR INFILTRATION. SAFETY PRECAUTIONS IN PLACE AND COMFORT MEASURES RENDERED. BED IN LOWEST POSITION, CALL LIGHT WITHIN REACH, BREAKS ON, SIDE RAILS ARE UP X2. WILL CONTINUE TO MONITOR .
[2020-01-28 08:00] VITALS: BP 108/60
[2020-01-28] MEDS ORDERED: GABAPENTIN 100 MG CAPSULE PO SCH (09:00)
[2020-01-28] MEDS ORDERED: SIMVASTATIN 20 MG TABLET PO SCH (09:00)
[2020-01-28] MEDS ORDERED: LOSARTAN POTASSIUM 50 MG TABLET PO SCH (09:00)
[2020-01-28] MEDS: METOPROLOL SUCCINATE 25 MG TAB.SR.24H PO SCH (09:21)
[2020-01-28] MEDS: ALLOPURINOL 100 MG TABLET PO SCH ×2 (09:21→17:57)
[2020-01-28] MEDS: AMLODIPINE BESYLATE 2.5 MG TABLET PO SCH (09:23)
[2020-01-28] MEDS: PANTOPRAZOLE 40 MG TABLET.DR PO SCH (10:58)
--- NOTE | 2020-01-28 11:36 | NUR ---
RN NOTES PULLED OUT HIS IV WILL TRY TO INSERT ONE
[2020-01-28 12:00] VITALS: BP 121/77
--- NOTE | 2020-01-28 12:01 | NUR ---
RN NOTES PT HAS HARD TIME SWALLOWING CHANGED PPI TO POWDER FORM CAUSE CANT CRUSH PPI
[2020-01-28] MEDS ORDERED: PANTOPRAZOLE 40 MG/PACK PACK ONE (12:04)
[2020-01-28] MEDS: MULTIPLE VIT (LYCOPENE/FA/MV,CA,IRON,MIN/LUT)1 TAB PO SCH (12:22)
[2020-01-28 16:00] VITALS: BP 113/76
--- NOTE | 2020-01-28 18:34 | NUR ---
RN CLOSING NOTES PATIENT REMAINS IN ROOM IN NO SIGNS OF RESPIRATORY DISTRESS. PATIENT SATURATING 96% OF 02 IN ROOM AIR VS WNL. REMOVED HIS IV . SAFETY PRECAUTIONS ARE IMPLEMENTED BY HOSPITAL POLICY IN PLACE AND COMFORT MEASURES RENDERED. BED IS IN LOWEST POSITION, CALL LIGHT WITHIN REACH, BREAKS ON, SIDE RAILS UP X2 . ALL NEEDS WERE ATTENDED, MEDICATIONS GIVEN SCHEDULED AND ORDERED . BED SITTER ON THE SIDE . WILL ENDORSE TO INCOMING SHIFT FOR MIGUELANGEL
--- NOTE | 2020-01-28 18:45 | NUR ---
RN NOTES PT IS GETTING VERY AGITATED AND PHYSICALLY AGGRESSIVE WITH THE SITTER CALLED DR MEYERS LET HIM KNOW WAITING FOR THE ORDERS
--- NOTE | 2020-01-28 19:11 | NUR ---
RN NOTES DOCTOR ORDER SERAQUINE 12.6 PO BID . PUT AN ORDER. AND PSYCH CONSULT
--- NOTE | 2020-01-28 19:30 | NUR ---
MS/TELE/RN RECEIVED PATIENT IN ROOM SITTING ON CHAIR AWAKE, ALERT, ORIENTED TO PERSON ONLY, CONFUSED, RESTLESS AND AGITATED, NO C/O PAIN, NO DISTRESS NOTED, SITTER AT BEDSIDE, WILL MONITOR.
[2020-01-28 20:00] VITALS: BP 120/68
[2020-01-28] MEDS: QUETIAPINE FUMARATE 25 MG TABLET PO SCH (20:34)
--- NOTE | 2020-01-28 21:55 | NUR ---
MS/TELE/RN PATIENT IS VERY AGITATED, TRYING TO GET OUT OF BED AND FIGHTING WITH THE SITTER. PATIENT IS VERY HIGH FALL RISK. OBTAINED ORDER OF ATIVAN 1 MG IVP Q [address] CAMARGO. ORDER CARRIED OUT.
[2020-01-28] MEDS ORDERED: LORAZEPAM INJ 2 MG/ML VIAL IV PRN (22:00)
[2020-01-28] MEDS ORDERED: LORAZEPAM INJ 2 MG/ML VIAL IM/IV PRN (22:50)
--- NOTE | 2020-01-28 23:36 | NUR ---
MS/TELE/RN PATIENT IS UNCONTROLLABLE AT THIS TIME, PATIENT ENTERED INTO ANOTHER ROOM AND SAT ON THE TOILET BOWL AND REFUSED TO COME OUT. SECURITY WAS CALLED. WE WERE ABLE TO BRING THE PATIENT BACK TO HIS ROOM BY CARA LO, ATIVAN 1 MG IM ORDERED, WAS THEN GIVEN. WILL MONITOR. Addendum: 01/29/20 at 0519 by KULDEEP VENEGAS RN PICC LINE RN UNABLE TO INSERT MIDLINE THE PATIENT WAS VERY AGITATED.
--- NOTE | 2020-01-29 00:30 | NUR ---
MS/TELE/RN PATIENT IS ON CARA CHAIR, APPEAR SLEEPING, CALM AND COMFORTABLE, NO SIGNS OF DISTRESS NOTED, SITTER AT BEDSIDE. WILL CONTINUE TO MONITOR.
[2020-01-29 04:00] VITALS: BP 146/83
[2020-01-29] MEDS ORDERED: LORAZEPAM INJ 2 MG/ML VIAL IM/IV PRN (04:00)
--- NOTE | 2020-01-29 05:17 | NUR ---
MS/TELE/RN ABLE TO INSERT NEW IV AT RT. F/A G 22. IVF RESTARTED.
--- NOTE | 2020-01-29 05:24 | NUR ---
MS/MADELIN/MEREDITH ABLE TO DO SKIN ASSESSMENT AT THIS TIME. PHOTOS TAKEN. Addendum: 01/29/20 at 0609 by KULDEEP VENEGAS RN ABLE TO PUT BACK THE TELE BOX.
[2020-01-29] MEDS: IV NS 0.9% 1,000 ML IV PRN ×2 (05:36→18:06)
--- NOTE | 2020-01-29 06:09 | NUR ---
MS/TELE/RN PATIENT APPEAR SLEEPING AT THIS TIME, APPEAR COMFORTABLE, NO SIGNS OF DISTRESS NOTED, SITTER AT BEDSIDE, ALL NEEDS ATTENDED AT THIS TIME, WILL CONTINUE TO MONITOR.
[2020-01-29 07:08] LABS: BASOPHILS # (AUTO) 0.1 /CMM (0.0-0.2); BASOPHILS % (AUTO) 0.5 % (0.0-2.0); EOSINOPHILS % (AUTO) 2.1 % (0.0-6.0); HEMATOCRIT 43 % (39-51); HEMOGLOBIN 14.5 g/dL (13.5-17.5); LYMPHOCYTES # (AUTO) 1.7 /CMM (0.8-4.8); LYMPHOCYTES % (AUTO) 13.7 % (20.0-44.0); MEAN CORPUSCULAR HGB CONC 34 g/dl (31.0-36.0); MEAN CORPUSCULAR VOLUME 100 fL (80-96); NEUTROPHILS # (AUTO) 9.3 /CMM (1.8-8.9); NEUTROPHILS % (AUTO) 75.7 % (43.0-81.0); PLATELET COUNT (AUTO) 212 /CMM (150-450); RED BLOOD CELL COUNT(AUTO) 4.29 MIL/uL (4.5-6.0); WHITE BLOOD COUNT (AUTO) 12.2 K/uL (4.3-11.0)
[2020-01-29 07:28] LABS: ALANINE AMINOTRANSFERASE 65 U/L (12-78); ALBUMIN 2.8 g/dL (3.4-5.0); ALKALINE PHOSPHATASE 54 U/L (46-116); ASPARTATE AMINOTRANSFERASE 41 U/L (15-37); BILIRUBIN,TOTAL 0.9 mg/dL (0.2-1.0); CALCIUM, SERUM 8.6 mg/dL (8.5-10.1); CARBON DIOXIDE 19 mmol/L (21-32); CHLORIDE 104 mmol/L (98-107); CREATININE 1.8 mg/dL (0.6-1.3); GLUCOSE 101 mg/dL (74-106); MAGNESIUM 2.1 mg/dL (1.8-2.4); PHOSPHORUS 3.7 mg/dL (2.5-4.9); POTASSIUM 4.6 mmol/L (3.5-5.1); SODIUM SERUM 136 mmol/L (136-145); TOTAL PROTEIN, SERUM 6.1 g/dL (6.4-8.2); UREA NITROGEN, BLOOD 46 mg/dL (7-18)
[2020-01-29] MEDS: PANTOPRAZOLE 40 MG/PACK PACK PO SCH (07:36)
--- NOTE | 2020-01-29 07:53 | NUR ---
TELE/RN OPENING NOTES PATIENT IS ON BED SLEEPING BUT EASILY AROUSABLE BY LIGHT TOUCH. NO SIGN AND SYMPTOM OF PAIN AT THIS TIME. PATIENT IN NO APPARENT RESPIRATORY DISTRESS NOTED. WILL CONTINUE TO MONITOR. Addendum: 01/29/20 at 0801 by CONNER LOREDO RN ERROR
--- NOTE | 2020-01-29 08:01 | NUR ---
TELE/RN OPENING NOTES RECEIVED PATIENT IS ON BED SLEEPING BUT EASILY AROUSABLE BY NAME AND LIGHT TOUCH. NO COMPLAINED OF PAIN AT THIS TIME. PATIENT IN NO APPARENT RESPIRATORY DISTRESS NOTED. PATIENT IS ON TELE MONITOR READING SR A LOT OF PVC 92 BPM. WILL CONTINUE TO MONITOR.
[2020-01-29] MEDS: QUETIAPINE FUMARATE 25 MG TABLET PO SCH ×2 (08:47→16:33)
[2020-01-29] MEDS: MULTIPLE VIT (LYCOPENE/FA/MV,CA,IRON,MIN/LUT)1 TAB PO SCH (08:49)
[2020-01-29] MEDS: METOPROLOL SUCCINATE 25 MG TAB.SR.24H PO SCH ×2 (08:50→16:33)
[2020-01-29] MEDS: AMLODIPINE BESYLATE 2.5 MG TABLET PO SCH ×2 (08:51→16:32)
[2020-01-29] MEDS: ALLOPURINOL 100 MG TABLET PO SCH ×2 (08:51→16:32)
--- NOTE | 2020-01-29 09:29 | NUR ---
TELE/RN NOTES BP 108/88 P 94 NORVASC 2.5 MG 1 TAB DAILY AND METOPROLOL 25 MG 1 TAB DAILY FOR 0900 IS WITH HELD. WILL CONTINUE TO MONITOR
[2020-01-29 11:10] LABS: PTH, INTACT 13 pg/mL (15-65)
--- NOTE | 2020-01-29 12:00 | NUR ---
TELE/RN NOTES CALLED JAMISON FERNANDEZ (DAUGHTER) REGARDING FESOTERODINE(TOVIAZ) 8MG IF JAMISON CAN BRING IT IN THE HOSPITAL. JAMISON VERBALIZED THAT SHE WILL CHECK AND BRING IT. PER PHARMACY THEY DIDN'T CARRY THIS MEDICATION.
--- NOTE | 2020-01-29 16:36 | NUR ---
TELE/RN NOTES BP 147/70 P 90 NORVASC 2.5 MG 1 TAB DAILY AND METOPROLOL 25 MG 1 TAB DAILY WAS GIVEN AT 1637. WILL CONTINUE TO MONITOR
--- NOTE | 2020-01-29 18:35 | NUR ---
TELE/RN CLOSING NOTES PATIENT IS ON BED. AWAKE, ALERT AND CONFUSED. PATIENT IN NO APPARENT RESPIRATORY DISTRESS NOTED. NO COMPLAINED OF PAIN NOTED. TELE MONITOR IN PLACED READING SR 89BPM. IV ACCESS AT RIGHT FOREARM # 22 G WITH IV FLUID OF NS 1L AT 70 ML/HR ON AND INFUSING WELL. SEEN AND EXAMINED BY MD WITH ORDERS MADE AND CARRIED OUT. ALL DUE MEDICATION WAS GIVEN. SAFETY PRECAUTIONS WAS IN PLACED. BED IN LOWEST POSITION AND LOCKED. SIDERAILS UP X 2. CALL LIGHT WITH IN REACH. SITTER IS ON BEDSIDE. WILL ENDORSED TO GIS SOFTWARE DEVELOPER FOR [employer].
--- NOTE | 2020-01-29 19:10 | NUR ---
AUDIT MACHINE OPERATOR OPENING NOTES: RECEIVED PATIENT IN BED,ASLEEP. NO S/S OF DISTRESS NOTED. BED IN LOWEST AND LOCKED POSITION. WITH 1:1 SITTER AT THE BEDSIDE. WITH O2 AT 2L/MIN. NASAL CANNULA. WITH SCD- DVT PUMPS ON BOTH LEGS.
[2020-01-29 20:00] VITALS: BP 108/55
--- NOTE | 2020-01-29 20:40 | NUR ---
DR RIVERA CAME AND WENT TO THE PATIENT'S ROOM, BUT PATIENT IS ASLEEP AT THIS TIME, MD NOT ABLE TO TALK TO THE PATIENT.
[2020-01-30] VITALS: BP 113/66
[2020-01-30 04:08] VITALS: BP 134/71
--- NOTE | 2020-01-30 05:17 | NUR ---
STRIPPER APPRENTICE CLOSING NOTES: PATIENT IN BED, ASLEEP, EASILY AROUSABLE. NO S/S OF DISTRESS NOTED. NO COMPLAIN OF PAIN. CALL LIGHT WITHIN REACH. BED IN LOWEST AND LOCKED POSITION. WITH 1:1 SITTER.
--- NOTE | 2020-01-30 07:05 | NUR ---
RECEIVED PATIENT IN BED,ASLEEP. NO S/S OF DISTRESS NOTED. BED IN LOWEST AND LOCKED POSITION. WITH 1:1 SITTER AT THE BEDSIDE. WITH O2 AT 3L/MIN. NASAL CANNULA. WITH SCD- DVT PUMPS ON BOTH LEGS. TELE ON 70S. ALL HOSPITAL POLICY SAFETY PRECAUTIONS IMPLEMENTED.
[2020-01-30 07:34] LABS: BASOPHILS # (AUTO) 0.1 /CMM (0.0-0.2); BASOPHILS % (AUTO) 1.1 % (0.0-2.0); EOSINOPHILS % (AUTO) 7.9 % (0.0-6.0); HEMATOCRIT 43 % (39-51); HEMOGLOBIN 14.3 g/dL (13.5-17.5); LYMPHOCYTES # (AUTO) 1.4 /CMM (0.8-4.8); LYMPHOCYTES % (AUTO) 16.2 % (20.0-44.0); MEAN CORPUSCULAR HGB CONC 33 g/dl (31.0-36.0); MEAN CORPUSCULAR VOLUME 100 fL (80-96); MONOCYTES # (AUTO) 0.9 /CMM (0.1-1.30); MONOCYTES % (AUTO) 10.6 % (2.0-12.0); NEUTROPHILS # (AUTO) 5.7 /CMM (1.8-8.9); NEUTROPHILS % (AUTO) 64.2 % (43.0-81.0); PLATELET COUNT (AUTO) 276 /CMM (150-450); RED BLOOD CELL COUNT(AUTO) 4.29 MIL/uL (4.5-6.0); WHITE BLOOD COUNT (AUTO) 8.8 K/uL (4.3-11.0)
[2020-01-30 07:55] LABS: CREATININE 1.2 mg/dL (0.6-1.3); POTASSIUM 3.5 mmol/L (3.5-5.1)
[2020-01-30 08:00] VITALS: BP 121/61
[2020-01-30] MEDS: ALLOPURINOL 100 MG TABLET PO SCH ×2 (08:55→16:53)
[2020-01-30] MEDS: PANTOPRAZOLE 40 MG/PACK PACK PO SCH (08:55)
[2020-01-30] MEDS: AMLODIPINE BESYLATE 2.5 MG TABLET PO SCH (09:11)
[2020-01-30] MEDS: QUETIAPINE FUMARATE 25 MG TABLET PO SCH ×2 (09:12→16:53)
[2020-01-30] MEDS: METOPROLOL SUCCINATE 25 MG TAB.SR.24H PO SCH (09:12)
[2020-01-30] MEDS: MULTIPLE VIT (LYCOPENE/FA/MV,CA,IRON,MIN/LUT)1 TAB PO SCH (09:12)
[2020-01-30] MEDS: OXYBUTYNIN CHLORIDE 5 MG TABLET PO SCH ×2 (14:15→16:53)
[2020-01-30 16:00] VITALS: BP 125/73
--- NOTE | 2020-01-30 19:00 | NUR ---
PT ASLEEP IN BED. CALM AND EASILY AROUSABLE. PT REMAINED W SITTER ALL DAY ORDERED. REMAINS CONFUSED BUT REDIRECTABLE. 2L NC SPO 98-100%. CARDIAC SOFT MECH DIET ORDERED. IV FLUSHED. PATENT THROUGHOUT SHIFT. ENDORSED TO PM RN FOR CONTINUATION OF CARE. ALL HOSPITAL POLICY SAFETY PRECAUTIONS IMPLEMENTED.
--- NOTE | 2020-01-30 19:53 | NUR ---
TELE/RN OPENING NOTE Patient awake in bed, A/O x1, confused. Breathing even, clear, unlabored. No acute distress or SOB noted. On NC 3 LPM, saturating well. Tele monitor sinus rhythm with PVC's, HR in the 70s. Tongue midline, no tracheal deviation. CRP <3seconds. No JVD. Skin warm, pink, dry appropriate for ethnicity. Skin tear noted on left forearm. Large bruise noted on right upper thigh. IV site RFA 22g saline locked, patent and intact. Abdomen round, soft, non-tender. BS active. Patient is incontinent. Voids without difficulty. Urine output clear, yellow. Bed in low position. wheels locked, side rails up x2, bed alarm on, call light within reach.
[2020-01-30 20:47] VITALS: BP 130/71
[2020-01-30 23:42] VITALS: BP 130/71
--- NOTE | 2020-01-31 06:02 | NUR ---
MS/RN CLOSING NOTE Patient awake in bed, A/O x2, confused. Breathing even, clear, unlabored. No acute distress or SOB noted. On room air, saturating well. Skin warm, pink, dry appropriate for ethnicity. Skin tear noted on left forearm. Large bruise noted on right upper thigh. Bruising noted on left eye. IV site RFA 22g saline locked, patent and intact. Abdomen round, soft, non-tender. Patient is incontinent, no bowel movement this shift. Voids without difficulty. Urine output clear, yellow, x2. Bed in low position. wheels locked, side rails up x2, bed alarm on, call light within reach, sitter at bedside.
[2020-01-31] MEDS: PANTOPRAZOLE 40 MG/PACK PACK PO SCH ×2 (06:38→08:20)
--- NOTE | 2020-01-31 06:39 | NUR ---
MS/RN NOTE Patient refused protonix at this time. Will continue to monitor.
[2020-01-31 07:05] LABS: BASOPHILS # (AUTO) 0.1 /CMM (0.0-0.2); BASOPHILS % (AUTO) 1.3 % (0.0-2.0); EOSINOPHILS % (AUTO) 6.5 % (0.0-6.0); HEMATOCRIT 42 % (39-51); HEMOGLOBIN 14.2 g/dL (13.5-17.5); LYMPHOCYTES # (AUTO) 1.8 /CMM (0.8-4.8); LYMPHOCYTES % (AUTO) 19.3 % (20.0-44.0); MEAN CORPUSCULAR HGB CONC 34 g/dl (31.0-36.0); MEAN CORPUSCULAR VOLUME 100 fL (80-96); MONOCYTES % (AUTO) 10.5 % (2.0-12.0); NEUTROPHILS # (AUTO) 5.8 /CMM (1.8-8.9); NEUTROPHILS % (AUTO) 62.4 % (43.0-81.0); PLATELET COUNT (AUTO) 334 /CMM (150-450); RED BLOOD CELL COUNT(AUTO) 4.26 MIL/uL (4.5-6.0); WHITE BLOOD COUNT (AUTO) 9.4 K/uL (4.3-11.0)
[2020-01-31 07:36] LABS: CALCIUM, SERUM 8.3 mg/dL (8.5-10.1); CREATININE 0.9 mg/dL (0.6-1.3); POTASSIUM 3.6 mmol/L (3.5-5.1)
[2020-01-31] MEDS: METOPROLOL SUCCINATE 25 MG TAB.SR.24H PO SCH (08:19)
[2020-01-31] MEDS: AMLODIPINE BESYLATE 2.5 MG TABLET PO SCH (08:19)
[2020-01-31] MEDS: OXYBUTYNIN CHLORIDE 5 MG TABLET PO SCH ×3 (08:19→16:05)
[2020-01-31] MEDS: QUETIAPINE FUMARATE 25 MG TABLET PO SCH ×2 (08:19→16:05)
[2020-01-31] MEDS: ALLOPURINOL 100 MG TABLET PO SCH ×2 (08:19→16:05)
[2020-01-31] MEDS: MULTIPLE VIT (LYCOPENE/FA/MV,CA,IRON,MIN/LUT)1 TAB PO SCH (08:20)
--- NOTE | 2020-01-31 18:24 | NUR ---
rn notes patient remains on room air, no sob noted, confused. Can state his age and date but is confused with everything else. Was about to go to [facility], but patient is refusing at this time. Called his family to talk to him. Patient is still refusing. Charge nurse aware. Transport team left at this time. Patient remains 1;1 sitter
--- NOTE | 2020-01-31 19:25 | NUR ---
MS/RN OPENING NOTE PT IN BED Z/O X2 CONFUSED BREATHING EVEN AND UNLABORED NO ACUTE DISTRESS NOTED. PT DENIES PAIN. IV SITE RFA 22 SALINE LOCKED FLUSHED NO S/S OF INFILTRATION. BED DOWN LOCKED SRX2 CALL LIGHT IN REACH. SITTER ERUM MCRAE . AT THE BEDSIDE TO MONITOR BED ALARM ACTIVE. PT WAS TO BE DISCHARGED TODAY BUT PT REFUSED AND TRANSPORT COMPANY REFUSED TO TRANSPORT. PER REPORT FROM [facility] [employer] MARIANA RODRÍGUEZ NOTIFIED. WILL CONT TO MONITOR.
[2020-01-31 20:00] VITALS: BP 104/61
[2020-02-01 07:07] LABS: *SPE A/G RATIO 1.2 (0.7-1.7); *SPE ALBUMIN 3.1 g/dL (2.9-4.4); *SPE ALPHA-1-GLOBULIN 0.3 g/dL (0.0-0.4); *SPE ALPHA-2-GLOBULIN 0.7 g/dL (0.4-1.0); *SPE GLOBULIN, TOTAL 2.6 g/dL (2.2-3.9); *SPE M-SPIKE Not Observed g/dL (Not Observed); *SPEGAMMA GLOBULIN 0.6 g/dL (0.4-1.8)
--- NOTE | 2020-02-01 07:26 | NUR ---
MS/RN closing NOTE PT IN BED with eyes closed. sitter at bedside. IV SITE RFA 22 SALINE LOCKED FLUSHED NO S/S OF INFILTRATION. BED DOWN LOCKED SRX2 CALL LIGHT IN REACH. AT THE BEDSIDE TO MONITOR BED ALARM ACTIVE. PT WAS TO BE DISCHARGED yesterday but patient refused. plan is to reattempt to discharge patient today. will endorse to oncoming shift.
--- NOTE | 2020-02-01 07:54 | NUR ---
MS RN OPENING NOTES PATIENT IS CURRENTLY SLEEPING. WITH NO SIGNS OF DISTRESS IN ROOM AIR. IV R FA #22G INTACT. PATIENT HAS A 1:1 SITTER. NO SIGNS OF PAIN AT THIS MOMENT. SAFETY MEASURES ARE APPLIED, BED IS LOCKED AND LOW POSITION, SIDE RAILS UP X 2. CALL LIGHT WITHIN REACH. WILL CONTINUE TO MONITOR.
[2020-02-01 08:00] VITALS: BP_SYST 140; BP_SYST 142; BP_DIAS 70
[2020-02-01] MEDS: OXYBUTYNIN CHLORIDE 5 MG TABLET PO SCH ×2 (09:16→12:28)
[2020-02-01 09:17] VITALS: BP 142/70
[2020-02-01] MEDS: ALLOPURINOL 100 MG TABLET PO SCH (09:17)
[2020-02-01] MEDS: METOPROLOL SUCCINATE 25 MG TAB.SR.24H PO SCH (09:17)
[2020-02-01] MEDS: QUETIAPINE FUMARATE 25 MG TABLET PO SCH (09:17)
[2020-02-01] MEDS: AMLODIPINE BESYLATE 2.5 MG TABLET PO SCH (09:17)
[2020-02-01] MEDS: MULTIPLE VIT (LYCOPENE/FA/MV,CA,IRON,MIN/LUT)1 TAB PO SCH (09:19)
--- NOTE | 2020-02-01 09:40 | NUR ---
JAMISON FERNANDEZ , PATIENT'S DAUGHTER CALLED TO SPEAK WITH DR. HILLS. DR. HILLS IS AWARE.
--- NOTE | 2020-02-01 15:00 | NUR ---
CALLED MARIANA RODRÍGUEZ TO GIVE REPORT ON PATIENT. SPOKE WITH MEREDITH ORDAZ PATIENT WILL BE STAYING IN ROOM #309.
--- NOTE | 2020-02-01 16:40 | NUR ---
DISCHARGE NOTES PATIENT VITALS ARE WITHIN NORMAL LIMIT WITH NO SIGNS OF DISTRESS ON 3L OF NASAL CANNULA. DISCHARGE INSTRUCTIONS WERE VERBALIZED TO THE PATIENT AND PATIENT VERBALIZED UNDERSTANDING. BELONGING LIST WAS COMPLETED AND SIGNED. DISCHARGE PHOTOS WERE TAKEN. IV WAS REMOVED WITH NO SIGNS OF BLEEDING AND COVERED. PATIENT LEFT VIA GURNEY WITH AMBULANCE.
== END 2020-02-01 16:49 | DRG 85 ==
LOC: ER 10:45 → TELE1 13:21 → TELE 18:44 → MED 01-30 11:34
PROVIDERS: ADMIT Nurse Practitioner Acute Care
DX: S06.6X0A Traumatic subarachnoid hemorrhage without loss of consciousness, initial encounter (principal); N17.0 Acute kidney failure with tubular necrosis; G93.41 Metabolic encephalopathy; E87.1 Hypo-osmolality and hyponatremia; S06.5X0A Traumatic subdural hemorrhage without loss of consciousness, initial encounter; W18.30XA Fall on same level, unspecified, initial encounter; I12.9 Hypertensive chronic kidney disease with stage 1 through stage 4 chronic kidney disease, or unspecified chronic kidney disease; I25.10 Atherosclerotic heart disease of native coronary artery without angina pectoris; N18.9 Chronic kidney disease, unspecified; Y92.009 Unspecified place in unspecified non-institutional (private) residence as the place of occurrence of the external cause; E78.5 Hyperlipidemia, unspecified; G62.9 Polyneuropathy, unspecified; Z87.01 Personal history of pneumonia (recurrent); Z79.82 Long term (current) use of aspirin; Z79.899 Other long term (current) drug therapy; I48.0 Paroxysmal atrial fibrillation; E86.1 Hypovolemia; R13.10 Dysphagia, unspecified; M10.9 Gout, unspecified; Z86.73 Personal history of transient ischemic attack (TIA), and cerebral infarction without residual deficits; Z86.79 Personal history of other diseases of the circulatory system; Z90.79 Acquired absence of other genital organ(s); I70.0 Atherosclerosis of aorta; E86.0 Dehydration; R23.3 Spontaneous ecchymoses; Y92.002 Bathroom of unspecified non-institutional (private) residence as the place of occurrence of the external cause
CPT/HCPCS: 36415; 70450-TC; 71045-TC; 73502; 76770-TC; 80048-TC; 80053-TC; 80061-TC; 80076-TC; 81000-TC; 82550-TC; 83735-TC; 83970; 84100-TC; 84155; 84165; 84443-TC; 84484-TC; 85025-TC; 85730-TC; 87081-TC; 92526; 92611-TC; 93307-TC; 97110-TC; 97116-TC; 97530-TC; C9803; G0378; J2060; J7030